=== PATIENT | male | born 1945 | race Caucasian/White ===

== ENCOUNTER 2016-06-25 08:51 | Inpatient (IN) | payer OTHER, MEDICARE ==
[~2016-06-25] VITALS: Ht 170.2 cm; Wt 95.4 kg
[2016-06-25 11:35] VITALS: BP 172/98; PULSE 63; RESP 18; TEMP 98.6; O2SAT 98
[2016-06-25 12:00] VITALS: PULSE 60
[2016-06-25] MEDS ORDERED: ePHEDrine/NS 25 MG/5 ML SYR IV ONE (12:00)
[2016-06-25] MEDS ORDERED: diphenhydrAMINE HCL 50 MG/ML VIAL IV PUSH SCH (12:00)
[2016-06-25] MEDS ORDERED: CISATRACURIUM BESYLATE 10 MG/5 ML VIAL IV PUSH ONE (12:00)
[2016-06-25] MEDS ORDERED: NEOSTIGMINE 3 MG/3 ML SYR IV ONE (12:00)
[2016-06-25] MEDS ORDERED: ACETAMINOPHEN 1000 MG/100 ML VIAL IV SCH (12:00)
[2016-06-25] MEDS ORDERED: ONDANSETRON HCL 4 MG/2 ML VIAL IV PUSH ONE (12:00)
[2016-06-25] MEDS ORDERED: PROPOFOL 200 MG/20 ML AMP IV ONE (12:00)
[2016-06-25] MEDS ORDERED: PHENYLEPH/NS 1000 MCG/10 ML SYR IV ONE (12:00)
[2016-06-25] MEDS ORDERED: SODIUM CHLOR 0.9% 1000 ML INJ 2,000 ML IV ONE (12:00)
[2016-06-25] MEDS ORDERED: SODIUM CHLORID 0.9% 500 ML INJ 500 ML IV ONE (12:00)
--- NOTE | 2016-06-25 12:05 | HHI.HP ---
History of Present Illness Service Transplant Primary Care Physician Non-Staff Admission Diagnosis ESRD, for Kidney transplant Diagnoses: History of Present Illness 71 yo male with ESRD from chronic diabetes; on peritoneal dialysis, still voids about 1 qt UO/day; No recent F/C/N/V/D, no exposure to anyone ill, no travel outside [place]; no open wounds or cough. Review of Systems Constitutional: DENIES: Diaphoretic episodes, Fatigue, Fever, Weight gain, Weight loss, Chills, Dizziness, Change in appetite, Night Sweats Endocrine: DENIES: Heat/cold intolerance, Polydipsia, Polyuria, Polyphagia Eyes: DENIES: Blurred vision, Diplopia, Eye inflammation, Eye pain, Vision loss , Photosensitivity, Double Vision Ears, nose, mouth, throat: DENIES: Tinnitus, Hearing loss, Vertigo, Nasal discharge, Oral lesions, Throat pain, Hoarseness, Ear Pain, Running Nose, Epistaxis, Sinus Pain, Toothache, Odynophagia Respiratory: DENIES: Apneas, Cough, Snoring, Wheezing, Hemoptysis, Sputum production, Shortness of breath Cardiovascular: DENIES: Chest pain, Palpitations, Syncope, Dyspnea on Exertion , PND, Lower Extremity Edema, Orthopnea, Claudication Gastrointestinal: DENIES: Abdominal pain, Black stools, Bloody stools, Constipation, Diarrhea, Nausea, Vomiting, Difficulty Swallowing, Anorexia Genitourinary: DENIES: Sexual dysfunction, Urinary frequency, Urinary incontinence, Urgency, Hematuria, Dysuria, Nocturia, Penile Discharge, Testicular Pain, Testicular Swelling Musculoskeletal: DENIES: Joint pain, Muscle aches, Stiffness, Joint Swelling, Back pain, Neck pain Integumentary: DENIES: Abnormal pigmentation, Nail changes, Pruritus, Rash Hematologic/lymphatic: DENIES: Bruising, Lymphadenopathy Immunologic/allergic: DENIES: Eczema, Urticaria Neurologic: DENIES: Abnormal gait, Headache, Localized weakness, Paresthesias, Seizures, Speech Problems, Tremor, Poor Balance Psychiatric: DENIES: Anxiety, Confusion, Mood changes, Depression, Hallucinations, Agitation, Suicidal Ideation, Homicidal Ideation, Delusions Past Family Social History Allergies: Coded Allergies: No Known Allergies (Unverified , 06/25/16) Past Medical History HTN hypothyroid BPH ESRD Past Surgical History L eye laser surgery PD cath placement 2015 Reported Medications ASA Flomax Levothyroxine Insulin Family History + for Diabetes Social History Non smoker Social drinker Physical Exam Physical Exam GENERAL: This is a well-nourished, well-developed patient, in no apparent distress. SKIN: No rashes, ecchymoses or lesions. Cool and dry. HEAD: Atraumatic. Normocephalic. No temporal or scalp tenderness. EYES: Pupils equal round and reactive. Extraocular motions intact. No scleral icterus. No injection or drainage. ENT: Nose without bleeding, purulent drainage or septal hematoma. Throat without erythema, tonsillar hypertrophy or exudate. Uvula midline. Airway patent. NECK: Trachea midline. No JVD or lymphadenopathy. Supple, nontender, no meningeal signs. CARDIOVASCULAR: Regular rate and rhythm without murmurs, gallops, or rubs. RESPIRATORY: Clear to auscultation. Breath sounds equal bilaterally. No wheezes , rales, or rhonchi. GASTROINTESTINAL: Abdomen soft, non-tender, nondistended. No hepato-splenomegaly , or palpable masses. No guarding.PD cath site without infection MUSCULOSKELETAL: Extremities without clubbing, cyanosis, or edema. No joint tenderness, effusion noted. No calf tenderness. NEUROLOGICAL: Awake and alert. Motor and sensory grossly within normal limits. 4 out of 5 muscle strength in all muscle groups. Normal speech. Laboratory Labs drawn, results pending Assessment and Plan Assessment and Plan Discussed KDPI (explained what it meant) of the allograft to patient, and he is willing to accept. He appears in good status for a donor kidney transplant. Crossmatch is negative for Mr. Pavon. Mateo Medina MD Jun 25, 2016 12:05
[2016-06-25] MEDS ORDERED: SODIUM CHLOR 0.9% 1000 ML INJ 1,000 ML IV ONE (12:06)
[2016-06-25 12:07] LABS: AUTOMATED NEUTROPHIL # 6.9 TH/MM3 (1.8-7.7); BASOPHIL % 0.3 % (0.0-2.0); EOSINOPHIL # 0.2 TH/MM3 (0-0.4); EOSINOPHIL % 1.5 % (0.0-4.0); HEMATOCRIT 38.7 % (39.0-51.0); HEMO FLAGS DIFF FINAL; LYMPHOCYTE # 2.4 TH/MM3 (1.0-4.8); MEAN CELL VOLUME 89.9 FL (80.0-100.0); MEAN CORPUSCULAR HEMOGLOBIN 31.1 PG (27.0-34.0); MEAN CORPUSCULAR HGB CONC 34.7 % (32.0-36.0); NEUT % 67.2 % (16.0-70.0); PLATELET COUNT 314 TH/MM3 (150-450); RED BLOOD COUNT 4.31 MIL/MM3 (4.50-5.90); RED CELL DISTRIBUTION WIDTH 13.2 % (11.6-17.2); WHITE BLOOD COUNT 10.2 TH/MM3 (4.0-11.0)
[2016-06-25 12:17] LABS: APTT (PATIENT) 26.3 SEC (24.3-30.1); INTERNATIONAL NORMALIZED RATIO 1.1 RATIO; PROTHROMBIN TIME - PATIENT 12.5 SEC (9.8-11.6)
--- NOTE | 2016-06-25 12:28 | MB ---
cc: SAMMI LANCASTER MD DATE OF CONSULTATION 06/25/2016 REASON FOR CONSULTATION End-stage renal disease on hemodialysis presented for cadaveric renal transplant. HISTORY OF PRESENT ILLNESS This is a very pleasant 70-year-old male with a past medical history of diabetes mellitus for more than 20 years, history of hypertension, has end-stage renal disease because of diabetic nephropathy and has been on the peritoneal dialysis for the last one year, was called for admission for cadaveric renal transplant. The patient has been on peritoneal dialysis for the last one year, but he has been using only one bag with the cycler at night, so he possibly has still gradual renal function. He has been following with Dr. Mendez and has been evaluated in the renal transplant clinic by Dr. Vee since July of last year. The patient did his regular peritoneal dialysis last night and he has no specific complaint. Denies any headache, dizziness or blurring of vision. No history of fever. No sore throat. No shortness of breath or chest pain. No palpitation. No nausea or vomiting. He is still passing urine. There is no history of dysuria or hematuria. PAST MEDICAL HISTORY 1. Hypertension 2. Diabetes mellitus 3. End-stage renal disease on peritoneal dialysis 4. Hyperlipidemia 5. Hypothyroidism 6. History of benign prostatic hypertrophy PAST SURGICAL HISTORY 1. History of eye surgery. 2. Tenckhoff catheter placement REVIEW OF SYSTEMS There is no history of fever. No sore throat. No headache, dizziness, or blurring of vision. No shortness breath. No chest pain. No palpitation. No nausea, vomiting, or abdominal pain. No history of diarrhea. SOCIAL HISTORY The patient is . There is no history of smoking or alcoholism. FAMILY HISTORY Noncontributory ALLERGIES NO KNOWN DRUG ALLERGIES. IMAGING STUDIES There were no recent imaging studies done. The last one was in July of 2015 where hemoglobin was 11.6. He has labs being drawn right now. ASSESSMENT/PLAN 1. Admitted for cadaveric renal transplant 2. End-stage renal disease on peritoneal dialysis 3. Diabetes mellitus 4. Hypertension 5. Hypothyroidism 6. Mild anemia The patient has been admitted for cadaveric renal transplant. He will have the surgery in the next two hours. He does not have any history of heart disease and has no recent fever or shortness of breath. He is not on any fluid overload status. We will follow his labs and he will be going for transplant. The patient will be getting thymo as well as regular anti-rejection therapy and will manage his fluid and blood pressure postoperatively. Thank you for the consultation. I will be following the patient while he is in the hospital. MD ALLYN Jarvis/ALIE /12:01 PM /12:14 PM
[2016-06-25 12:33] LABS: ALKALINE PHOSPHATASE 70 U/L (45-117); ALT (GPT) 33 U/L (12-78); ANION GAP 11 MEQ/L (5-15); AST (GOT) 39 U/L (15-37); BICARBONATE 24.8 MEQ/L (21.0-32.0); BLOOD UREA NITROGEN 51 MG/DL (7-18); CHLORIDE 103 MEQ/L (98-107); GLOMERULAR FILTRATION RATE 10 ML/MIN (>89); POTASSIUM 4.2 MEQ/L (3.5-5.1); SODIUM (NA) 139 MEQ/L (136-145); TOTAL BILIRUBIN ADULT 0.4 MG/DL (0.2-1.0)
[2016-06-25] MEDS ORDERED: METHYLPREDNISOLONE IV SCH (12:45)
[2016-06-25] MEDS ORDERED: ceFAZolin 2 GM PREMIX 50 ML IV SCH (12:45)
[2016-06-25 13:00] VITALS: PULSE 56
[2016-06-25] MEDS ORDERED: MYCOPHENOLATE MOFETIL 500 MG TAB PO SCH (13:00)
--- NOTE | 2016-06-25 13:10 | RADRPT ---
EXAM DATE/TIME: 06/25/2016 12:28 [facility] COMPARISON: No previous studies available for comparison. INDICATIONS : Evaluate for pneumonia, pneumothorax, and communicable disease. Pre op for kidney transplant. MEDICAL HISTORY : Hypertension. Hypercholesterolemia. Stage 4 renal failure. Diabetes. SURGICAL HISTORY : Peritoneal dialysis catheter. ENCOUNTER: Initial ACUITY: 1 day PAIN SCORE: 0/10 LOCATION: Bilateral chest FINDINGS: PA and lateral views of the chest demonstrate the lungs to be symmetrically aerated without evidence of mass, infiltrate or effusion. The cardiomediastinal contours are unremarkable. Osseous structure s are intact. CONCLUSION: 1. No acute cardiopulmonary findings. John Koroma MD on June 25, 2016 at 13:07 Board Certified Radiologist. This report was verified electronically.
[2016-06-25] MEDS ORDERED: ASPI1TAB69 PO (13:15)
[2016-06-25] MEDS ORDERED: BENA40TA PO (13:15)
[2016-06-25] MEDS ORDERED: ATEN100T PO (13:15)
[2016-06-25] MEDS ORDERED: CALC0.5C6 PO (13:15)
[2016-06-25] MEDS ORDERED: EPA1000C PO (13:15)
[2016-06-25] MEDS ORDERED: FOLI800T PO (13:15)
[2016-06-25] MEDS ORDERED: FURO1TAB60 PO (13:15)
[2016-06-25] MEDS ORDERED: BENA20TA PO (13:15)
[2016-06-25] MEDS ORDERED: LEVO-154 PO (13:15)
[2016-06-25] MEDS ORDERED: HEPARIN SODIUM - SQ 10,000 UNITS/ML VIAL ONE (13:24)
[2016-06-25] MEDS ORDERED: BUPIVACAINE HCL PF 0.5% 30 ML VIAL ONE (13:24)
[2016-06-25] MEDS ORDERED: SODIUM BICARBONATE 8.4% INJ 50 MEQ/50 ML SYR ONE (13:25)
[2016-06-25] MEDS ORDERED: MINERAL OIL 10 ML VIAL ONE (13:25)
[2016-06-25] MEDS ORDERED: LIDOCAINE HCL 2% 50 ML VIAL ONE (13:25)
[2016-06-25] MEDS ORDERED: PAPAVERINE INJ 60 MG/2 ML VIAL ONE ×2 (13:25→13:30)
[2016-06-25] MEDS ORDERED: methylPREDNISolone SOD SUCC 125 MG/2 ML VIAL ONE ×2 (13:25→13:31)
[2016-06-25] MEDS ORDERED: SODIUM BICARBONATE 8.4% INJ 50 ML ONE (13:31)
[2016-06-25 14:00] VITALS: PULSE 57
[2016-06-25] MEDS ORDERED: CHOL1CAP61 PO (14:37)
[2016-06-25] MEDS ORDERED: LOVA40TA PO (14:37)
[2016-06-25] MEDS ORDERED: SEVEL800 PO (14:37)
[2016-06-25] MEDS ORDERED: INSUINJ4 (14:37)
[2016-06-25] MEDS ORDERED: FERR150C (14:37)
[2016-06-25] MEDS ORDERED: INSUINJ4 SQ ×2 (14:37)
[2016-06-25] MEDS ORDERED: NIFE90TA2 PO (14:37)
[2016-06-25] MEDS ORDERED: TAMS0.4C4 PO (14:37)
[2016-06-25] MEDS ORDERED: CLON0.2T PO (14:40)
[2016-06-25] MEDS ORDERED: NIFE30TA61 PO (14:42)
[2016-06-25] MEDS ORDERED: fentaNYL CITRATE 250 MCG/5 ML AMP ONE ×2 (16:03→18:01)
[2016-06-25] MEDS ORDERED: MIDAZOLAM HCL 2 MG/2 ML VIAL ONE (16:03)
[2016-06-25] MEDS ORDERED: ACETAMINOPHEN 1000 MG/100 ML VIAL IV ONE (16:03)
[2016-06-25] MEDS ORDERED: ARTIFICIAL TEARS OPTH OINT 3.5 APPLIC/3.5 GM TUBO ONE (16:03)
[2016-06-25] MEDS ORDERED: BACITRACIN IM FOR SOLN 50,000 UNIT VIAL XX ONE (17:27)
[2016-06-25] MEDS ORDERED: ANTITHYMOCYTE GLOB IV-CENTRAL ONE (18:00)
[2016-06-25] MEDS ORDERED: SODIUM CHLORID 0.9% IV-CENTRAL ONE (18:00)
[2016-06-25] MEDS ORDERED: ONDANSETRON HCL 4 MG/2 ML VIAL IV PRN (22:45)
[2016-06-25] MEDS ORDERED: DEXTROSE 50% IN WATER 50 ML VIAL(D50) IV PUSH PRN (22:45)
[2016-06-25] MEDS ORDERED: RESP: ALBUTEROL 2.5 MG/IPRATROPIUM 0.5 MG NEB (PRN) INH (22:45)
[2016-06-25] MEDS ORDERED: diphenhydrAMINE HCL 50 MG/ML VIAL IV PRN (22:45)
[2016-06-25] MEDS ORDERED: diphenhydrAMINE HCL 25 MG CAP PO PRN (22:45)
[2016-06-25] MEDS ORDERED: ONDANSETRON INJ 8 MG in DEXTROSE 5% IN WATER INJ 50 ML IV PRN ×2 (22:45)
[2016-06-25] MEDS ORDERED: MORPHINE SULFATE 30 MG/30 ML PCA IV SCH (22:45)
[2016-06-25] MEDS ORDERED: NALOXONE HCL 0.4 MG/ML AMP IV PRN (22:45)
[2016-06-25] MEDS ORDERED: GLUCAGON 1 MG/ML VIAL OTHER PRN (22:45)
[2016-06-25] MEDS ORDERED: LABETALOL HCL 100 MG/20 ML VIAL ONE (22:57)
[2016-06-25 23:14] LABS: AUTOMATED NEUTROPHIL # 10.5 TH/MM3 (1.8-7.7); HEMATOCRIT 35.2 % (39.0-51.0); HEMO FLAGS DIFF FINAL; LYMPH % 0.9 % (9.0-44.0); LYMPHOCYTE # 0.1 TH/MM3 (1.0-4.8); MEAN CELL VOLUME 91.2 FL (80.0-100.0); MEAN CORPUSCULAR HEMOGLOBIN 31.5 PG (27.0-34.0); MEAN CORPUSCULAR HGB CONC 34.5 % (32.0-36.0); MONO % 0.4 % (0.0-8.0); NEUT % 98.7 % (16.0-70.0); PLATELET COUNT 186 TH/MM3 (150-450); RED BLOOD COUNT 3.86 MIL/MM3 (4.50-5.90); RED CELL DISTRIBUTION WIDTH 13.2 % (11.6-17.2); WHITE BLOOD COUNT 10.6 TH/MM3 (4.0-11.0)
[2016-06-25] MEDS ORDERED: DO NOT ADM ANY ANTICOAGULANT DRUGS XX PRN (23:30)
--- NOTE | 2016-06-25 23:39 | RADRPT ---
EXAM DATE/TIME: 06/25/2016 23:13 [facility] COMPARISON: No previous studies available for comparison. INDICATIONS : Right internal jugular central line placement. MEDICAL HISTORY : Hypertension. Hypercholesterolemia. Renal failure, chronic. SURGICAL HISTORY : Kidney transplant. ENCOUNTER: Subsequent ACUITY: 1 day PAIN SCORE: 0/10 LOCATION: Right chest FINDINGS: Right jugular line is noted in the tip overlies expected location the SVC. There is atelectasis at th e left base. No effusions. Osseous structures are intact. Cardiomegaly. CONCLUSION: Right jugular line placement as above. Rosalio Macias MD on June 25, 2016 at 23:37 Board Certified Radiologist. This report was verified electronically.
[2016-06-25] MEDS: DEXT 5%-NACL 0.45% 1000 ML INJ 1,000 ML IV SCH (23:45)
[2016-06-25 23:47] LABS: BICARBONATE 21.1 MEQ/L (21.0-32.0); MAGNESIUM 1.8 MG/DL (1.5-2.5)
[2016-06-26] VITALS (17 sets, daily range): BP systolic 121–177; BP diastolic 62–87; PULSE 70–93; RESP 16–20; TEMP 98.4–100.3; O2SAT 93–98
[2016-06-26] MEDS: SODIUM CHLOR 0.45% 1000 ML INJ 1,000 ML IV SCH (00:16)
[2016-06-26] MEDS ORDERED: MYCOPHENOLATE MOFETIL 500 MG TAB PO SCH (06:00)
[2016-06-26] MEDS: PCA - TOTAL MG MORPHINE DELIVERED PER SHIFT SCH ×3 (06:00→22:00)
[2016-06-26] MEDS ORDERED: MYCOPHENOLATE MOFETIL INJ 1,000 MG in DEXTROSE 5% IN WATE 150 ML INJ 150 ML IV SCH ×2 (06:00)
[2016-06-26 06:02] LABS: AUTOMATED NEUTROPHIL # 18.6 TH/MM3 (1.8-7.7); BASOPHIL # 0.1 TH/MM3 (0-0.2); BASOPHIL % 0.3 % (0.0-2.0); HEMATOCRIT 33.1 % (39.0-51.0); HEMO FLAGS DIFF FINAL; LYMPH % 0.5 % (9.0-44.0); LYMPHOCYTE # 0.1 TH/MM3 (1.0-4.8); NEUT % 95.2 % (16.0-70.0); PLATELET COUNT 226 TH/MM3 (150-450); RED BLOOD COUNT 3.64 MIL/MM3 (4.50-5.90); RED CELL DISTRIBUTION WIDTH 13.3 % (11.6-17.2); WHITE BLOOD COUNT 19.6 TH/MM3 (4.0-11.0)
[2016-06-26 06:08] LABS: BICARBONATE 19.7 MEQ/L (21.0-32.0); MAGNESIUM 1.7 MG/DL (1.5-2.5); POTASSIUM 4.3 MEQ/L (3.5-5.1)
[2016-06-26] MEDS: INSULIN NovoLIN REGULAR SUPPLEMENTAL SCALE SQ SCH ×4 (06:30→21:52)
[2016-06-26] MEDS: MYCOPHENOLATE MOFETIL 500 MG TAB PO SCH ×2 (06:45→18:21)
[2016-06-26] MEDS: CALCIUM CARBONATE 500 MG CHEWABLE TAB CHEW SCH ×2 (08:40→15:52)
[2016-06-26] MEDS: NYSTATIN SUSP 500,000 U/5 ML CUP SWISH-SWAL SCH ×3 (08:41→20:26)
[2016-06-26] MEDS: PANTOPRAZOLE SODIUM 40 MG VIAL IV PUSH SCH (08:41)
--- NOTE | 2016-06-26 18:52 | HHI.NPPN ---
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 Additional Remarks Patient is alert, feeling better, no SOB. Objective Data Data 06/25/16 06/26/16 19:00 07:00 Intake Total 4947 ml Output Total 830 ml Balance 4117 ml Intake Oral 200 ml IV Total 1747 ml Other 3000 ml Output Urine Total 550 ml Drainage Total 80 ml Estimated Blood Loss 200 ml Other 0 ml # Bowel Movements 0 Vital Signs Date Time Temp Pulse Resp B/P Pulse Ox O2 Delivery O2 Flow Rate FiO2 06/26/16 15:46 94 Nasal Cannula 2.00 06/26/16 15:46 99.8 85 18 121/67 94 126/63 06/26/16 15:00 90 06/26/16 14:00 16 06/26/16 14:00 16 06/26/16 11:30 99.8 85 18 121/67 94 126/63 06/26/16 11:30 94 Nasal Cannula 2.00 06/26/16 11:00 70 06/26/16 08:29 97 Nasal Cannula 2.00 06/26/16 08:28 128/64 121/66 06/26/16 08:08 99.4 89 20 122/62 95 124/63 06/26/16 08:08 95 Nasal Cannula 2.00 06/26/16 07:00 90 06/26/16 06:00 18 06/26/16 06:00 16 06/26/16 04:00 95 Nasal Cannula 2.00 06/26/16 04:00 98.4 87 16 130/69 95 141/66 06/26/16 04:00 88 06/26/16 02:33 95 Nasal Cannula 2.00 06/26/16 00:30 98.4 93 16 160/78 95 177/76 06/26/16 00:30 92 06/26/16 00:30 95 Nasal Cannula 2.00 06/26/16 00:18 20 06/26/16 00:15 97.6 91 16 167/83 96 Nasal Cannula 2 180/59 06/26/16 00:00 88 16 151/83 100 Nasal Cannula 2 182/61 06/25/16 23:45 81 15 162/81 100 Nasal Cannula 3 174/59 06/25/16 23:30 83 15 159/79 100 Nasal Cannula 3 190/65 06/25/16 23:15 114 15 173/78 94 Nasal Cannula 3 194/72 06/25/16 23:00 86 14 135/76 100 Simple Mask 10 175/70 06/25/16 22:45 97.5 101 14 158/81 95 Simple Mask 10 187/73 -: 06/26/16 0510 06/26/16 0510 Physical Exam General Appearance: No Acute Distress, Comfortable Eyes Eye Exam: Pupils Equal Neck Neck Exam: Neck Supple Pulmonary Resp Exam: Clear Bilaterally, Breath Sounds Equal, Decreased Bases Cardiology CV Exam: Regular, Normal Sinus Rhythm Gastrointestinal/Abdomen GI Exam: Soft, Non-Tender, Bowel Sounds Present, Non-Distended Extremeties Extremities Exam: Trace Edema Neurologic Neuro Exam: Alert, Awake, Oriented Psychiatric Psych Exam: Appropriate Responses Assessment/Plan Assessment Summary: Hypertension, Transplant Kidney Status Problem List: (1) Diabetes (2) Hypertension (3) ESRD (end stage renal disease) on dialysis (4) Renal transplant, status post Plan Patient has adequate urine out put. BP is stable. Creatinine almost same. On ATG, along with CellCept. Will give 2nd dose today. Follow urine out put , BMP. To start Prograf once Creatinine is better. Problem Qualifiers (1) Diabetes: (2) Hypertension: Qualified Code: I10 - Essential hypertension Rico Kebede MD Jun 26, 2016 18:52
[2016-06-26] MEDS ORDERED: diphenhydrAMINE HCL 50 MG CAP PO ONE (19:00)
[2016-06-26] MEDS ORDERED: [UNRECOGNIZED DRUG - OTHER] XX PRN (19:00)
[2016-06-26] MEDS ORDERED: ACETAMINOPHEN 325 MG TAB PO ONE (19:00)
[2016-06-26] MEDS ORDERED: diphenhydrAMINE HCL 50 MG/ML VIAL IV PUSH ONE (19:00)
[2016-06-26] MEDS ORDERED: methylPREDNISolone SOD SUCC 125 MG/2 ML VIAL IV ONE (19:00)
[2016-06-26] MEDS ORDERED: ANTITHYMOCYTE GLOB IV-CENTRAL ONE (20:00)
[2016-06-26] MEDS ORDERED: SODIUM CHLORID 0.9% IV-CENTRAL ONE (20:00)
[2016-06-26] MEDS: DOCUSATE SODIUM 100 MG CAP PO SCH (20:26)
[2016-06-26] MEDS: DEXT 5%-NACL 0.45% 1000 ML INJ 1,000 ML IV SCH (22:38)
[2016-06-27] VITALS (13 sets, daily range): BP systolic 137–189; BP diastolic 68–97; PULSE 62–93; RESP 18–20; TEMP 98.7–99.3; O2SAT 92–95
[2016-06-27 05:36] LABS: AUTOMATED NEUTROPHIL # 7.1 TH/MM3 (1.8-7.7); HEMATOCRIT 32.8 % (39.0-51.0); HEMO FLAGS DIFF FINAL; LYMPH % 1.5 % (9.0-44.0); LYMPHOCYTE # 0.1 TH/MM3 (1.0-4.8); MEAN CELL VOLUME 91.3 FL (80.0-100.0); MEAN CORPUSCULAR HEMOGLOBIN 30.2 PG (27.0-34.0); MEAN CORPUSCULAR HGB CONC 33.1 % (32.0-36.0); NEUT % 96.5 % (16.0-70.0); PLATELET COUNT 154 TH/MM3 (150-450); RED BLOOD COUNT 3.59 MIL/MM3 (4.50-5.90); WHITE BLOOD COUNT 7.3 TH/MM3 (4.0-11.0)
[2016-06-27] MEDS: PCA - TOTAL MG MORPHINE DELIVERED PER SHIFT SCH ×3 (06:00→22:00)
[2016-06-27] MEDS: MYCOPHENOLATE MOFETIL 500 MG TAB PO SCH ×2 (06:00→18:02)
[2016-06-27 06:13] LABS: MAGNESIUM 1.9 MG/DL (1.5-2.5); POTASSIUM 4.5 MEQ/L (3.5-5.1)
[2016-06-27] MEDS: INSULIN NovoLIN REGULAR SUPPLEMENTAL SCALE SQ SCH ×4 (06:51→21:37)
--- NOTE | 2016-06-27 07:22 | EKG ---
Date Performed: 06/25/2016 Time Performed: 12:02:00 PTAGE: 71 years EKG: Sinus rhythm Leftward axis Poor R wave progression - probable normal variant Borderline ECG NO PREVIOUS TRACING DOCTOR: Agustin Jacobs Interpretating Date/Time 06/27/2016 07:22:09
[2016-06-27] MEDS ORDERED: LEVOTHYROXINE SODIUM 150 MCG TAB PO SCH (08:45)
--- NOTE | 2016-06-27 08:59 | HHI.PR ---
Subjective Remarks Awake and alert this AM, slept off and on, wants to get out of bed, tolerating clears and pills, no flatus Objective Laboratory Tests Test 06/27/16 05:12 White Blood Count 7.3 Red Blood Count 3.59 Hemoglobin 10.9 Hematocrit 32.8 Mean Corpuscular Volume 91.3 Mean Corpuscular Hemoglobin 30.2 Mean Corpuscular Hemoglobin 33.1 Concent Red Cell Distribution Width 13.0 Platelet Count 154 Mean Platelet Volume 9.0 Neutrophils (%) (Auto) 96.5 Lymphocytes (%) (Auto) 1.5 Monocytes (%) (Auto) 2.0 Eosinophils (%) (Auto) 0.0 Basophils (%) (Auto) 0.0 Neutrophils # (Auto) 7.1 Lymphocytes # (Auto) 0.1 Monocytes # (Auto) 0.1 Eosinophils # (Auto) 0.0 Basophils # (Auto) 0.0 CBC Comment DIFF FINAL Differential Comment Sodium Level 135 Potassium Level 4.5 Chloride Level 103 Carbon Dioxide Level 18.0 Anion Gap 14 Blood Urea Nitrogen 65 Creatinine 5.59 Estimat Glomerular Filtration 10 Rate Random Glucose 339 Calcium Level 7.9 Phosphorus Level 4.6 Magnesium Level 1.9 Vital Signs Date Time Temp Pulse Resp B/P Pulse Ox O2 Delivery O2 Flow Rate FiO2 06/27/16 08:00 95 Nasal Cannula 2.00 06/27/16 08:00 99.0 83 20 149/84 95 159/68 06/27/16 07:00 64 06/27/16 06:00 18 06/27/16 06:00 18 06/27/16 03:00 95 Nasal Cannula 2.00 06/27/16 03:00 83 06/27/16 03:00 99.2 83 20 165/85 95 160/70 06/26/16 23:00 93 Nasal Cannula 2.00 06/26/16 23:00 86 06/26/16 23:00 100.3 87 18 165/87 93 158/69 06/26/16 22:00 18 06/26/16 22:00 18 06/26/16 20:52 97 Nasal Cannula 2.00 06/26/16 19:00 99.9 78 18 150/79 98 167/72 06/26/16 19:00 98 Nasal Cannula 2.00 06/26/16 19:00 86 06/26/16 15:46 94 Nasal Cannula 2.00 06/26/16 15:46 99.8 85 18 121/67 94 126/63 06/26/16 15:00 90 06/26/16 14:00 16 06/26/16 14:00 16 06/26/16 11:30 99.8 85 18 121/67 94 126/63 06/26/16 11:30 94 Nasal Cannula 2.00 06/26/16 11:00 70 I/O 06/26/16 06/26/16 06/26/16 06/27/16 06/27/16 06/27/16 07:00 15:00 23:00 07:00 15:00 23:00 Intake Total 1447 ml 2158 ml 3135 ml Output Total 630 ml 428 ml 1965 ml Balance 817 ml 1730 ml 1170 ml Intake Oral 200 ml 1180 ml 840 ml IV Total 1247 ml 978 ml 2295 ml Output Urine Total 550 ml 398 ml 1905 ml Drainage Total 80 ml 30 ml 60 ml # Bowel Movements 0 0 Result Diagram: 06/27/1612 06/27/16 0512 Other Results Dressing clean , dry, intact, non-soiled Abdomen soft, non-idstended Ext + edema Urine red tinged Drain: serosang Assessment and Plan Assessment and Plan Doing well with excellent urine production, clearance lagging; will d/c Cinthya and wean off oxygen; Restart Flomax and levothyroxine; OOB to chair Mateo Medina MD Jun 27, 2016 08:59
[2016-06-27] MEDS: PANTOPRAZOLE SODIUM 40 MG VIAL IV PUSH SCH (09:43)
[2016-06-27] MEDS: SULFAMETHOXAZOLE-TRIMETHOPRIM DS 800-160 MG TAB PO SCH (09:44)
[2016-06-27] MEDS: TAMSULOSIN HCL 0.4 MG CAP PO SCH (09:44)
[2016-06-27] MEDS: CALCIUM CARBONATE 500 MG CHEWABLE TAB CHEW SCH ×2 (09:44→16:33)
[2016-06-27] MEDS: DOCUSATE SODIUM 100 MG CAP PO SCH ×2 (09:44→20:13)
[2016-06-27] MEDS: NYSTATIN SUSP 500,000 U/5 ML CUP SWISH-SWAL SCH ×3 (09:44→20:27)
--- NOTE | 2016-06-27 12:21 | HHI.NPPN ---
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 Additional Remarks Patient is alert, no SOB, has mild discomfort at surgery site. Objective Data Data 06/26/16 06/27/16 19:00 07:00 Intake Total 2158 ml 3135 ml Output Total 428 ml 1965 ml Balance 1730 ml 1170 ml Intake Oral 1180 ml 840 ml IV Total 978 ml 2295 ml Output Urine Total 398 ml 1905 ml Drainage Total 30 ml 60 ml # Bowel Movements 0 Vital Signs Date Time Temp Pulse Resp B/P Pulse Ox O2 Delivery O2 Flow Rate FiO2 06/27/16 12:00 95 06/27/16 12:00 80 06/27/16 12:00 98.9 63 20 163/97 95 Arterial Line 06/27/16 08:00 95 Nasal Cannula 2.00 06/27/16 08:00 99.0 83 20 149/84 95 159/68 06/27/16 07:00 64 06/27/16 06:00 18 06/27/16 06:00 18 06/27/16 03:00 95 Nasal Cannula 2.00 06/27/16 03:00 83 06/27/16 03:00 99.2 83 20 165/85 95 160/70 06/26/16 23:00 93 Nasal Cannula 2.00 06/26/16 23:00 86 06/26/16 23:00 100.3 87 18 165/87 93 158/69 06/26/16 22:00 18 06/26/16 22:00 18 06/26/16 20:52 97 Nasal Cannula 2.00 06/26/16 19:00 99.9 78 18 150/79 98 167/72 06/26/16 19:00 98 Nasal Cannula 2.00 06/26/16 19:00 86 06/26/16 15:46 94 Nasal Cannula 2.00 06/26/16 15:46 99.8 85 18 121/67 94 126/63 06/26/16 15:00 90 06/26/16 14:00 16 06/26/16 14:00 16 -: 06/27/16 0512 06/27/16 0512 Physical Exam General Appearance: No Acute Distress, Comfortable Eyes Eye Exam: Pupils Equal Neck Neck Exam: Neck Supple Pulmonary Resp Exam: Clear Bilaterally, Breath Sounds Equal, Decreased Bases Cardiology CV Exam: Regular, Normal Sinus Rhythm Gastrointestinal/Abdomen GI Exam: Soft, Non-Tender, Bowel Sounds Present, Non-Distended Extremeties Extremities Exam: Trace Edema Neurologic Neuro Exam: Alert, Awake, Oriented Psychiatric Psych Exam: Appropriate Responses Assessment/Plan Assessment Summary: Hypertension, Transplant Kidney Status Problem List: (1) Diabetes (2) Hypertension (3) ESRD (end stage renal disease) on dialysis (4) Renal transplant, status post Plan Patient has adequate urine out put. Creatinine is almost same. On ATG, along with CellCept and steroid. Will give 3rd dose today. Hold starting Prograf as Creatinine still not improving. Follow urine out put , BMP. To start Prograf once Creatinine is better. BS elevated, change sliding scale to medium. BP is elevated, start Nifedipine and clonidine PRN. Problem Qualifiers (1) Diabetes: (2) Hypertension: Qualified Code: I10 - Essential hypertension Rico Kebede MD Jun 27, 2016 12:21
[2016-06-27] MEDS: LEVOTHYROXINE SODIUM 75 MCG TAB PO SCH (13:22)
[2016-06-27] MEDS: LEVOTHYROXINE SODIUM 100 MCG TAB PO SCH (13:22)
[2016-06-27] MEDS: NIFEdipine 60 MG SUSTAINED RELEASE TAB PO SCH (13:22)
[2016-06-27] MEDS ORDERED: ACETAMINOPHEN 325 MG TAB PO ONE ×2 (14:00→19:30)
[2016-06-27] MEDS ORDERED: [UNRECOGNIZED DRUG - OTHER] XX PRN ×2 (14:00→19:00)
[2016-06-27] MEDS ORDERED: diphenhydrAMINE HCL 50 MG CAP PO ONE ×3 (14:00→19:30)
[2016-06-27] MEDS ORDERED: diphenhydrAMINE HCL 50 MG/ML VIAL IV PUSH ONE ×2 (14:00→19:30)
[2016-06-27] MEDS ORDERED: methylPREDNISolone SOD SUCC 125 MG/2 ML VIAL IV ONE ×2 (14:00→19:00)
[2016-06-27] MEDS: cloNIDine HCL 0.1 MG TAB PO PRN (15:07)
[2016-06-27] MEDS ORDERED: ANTITHYMOCYTE GLOB(RABBIT) INJ 100 MG in SODIUM CHLORID 0.9% 500 ML INJ 500 ML IV-CENTRAL ONE (20:00)
[2016-06-27] MEDS: SODIUM CHLOR 0.45% 1000 ML INJ 1,000 ML IV SCH (22:24)
[2016-06-28] VITALS (12 sets, daily range): BP systolic 101–163; BP diastolic 49–86; PULSE 60–84; RESP 16–20; TEMP 97.6–98.8; O2SAT 91–98
[2016-06-28] MEDS: SODIUM CHLOR 0.45% 1000 ML INJ 1,000 ML IV SCH ×4 (02:27→16:18)
[2016-06-28] MEDS: LEVOTHYROXINE SODIUM 100 MCG TAB PO SCH (05:52)
[2016-06-28] MEDS: LEVOTHYROXINE SODIUM 75 MCG TAB PO SCH (05:52)
[2016-06-28] MEDS: PCA - TOTAL MG MORPHINE DELIVERED PER SHIFT SCH (05:53)
[2016-06-28] MEDS: MYCOPHENOLATE MOFETIL 500 MG TAB PO SCH ×2 (05:53→17:42)
[2016-06-28] MEDS ORDERED: LEVOTHYROXINE SODIUM 100 MCG TAB PO SCH (06:00)
[2016-06-28] MEDS: INSULIN NovoLIN REGULAR SUPPLEMENTAL SCALE SQ SCH ×4 (06:05→20:55)
[2016-06-28] MEDS: cloNIDine HCL 0.1 MG TAB PO PRN (06:08)
[2016-06-28 06:25] LABS: AUTOMATED NEUTROPHIL # 2.9 TH/MM3 (1.8-7.7); HEMATOCRIT 28.4 % (39.0-51.0); HEMO FLAGS DIFF FINAL; LYMPH % 2.9 % (9.0-44.0); LYMPHOCYTE # 0.1 TH/MM3 (1.0-4.8); MEAN CELL VOLUME 90.6 FL (80.0-100.0); MEAN CORPUSCULAR HEMOGLOBIN 30.6 PG (27.0-34.0); MEAN CORPUSCULAR HGB CONC 33.7 % (32.0-36.0); MONO % 2.7 % (0.0-8.0); NEUT % 94.4 % (16.0-70.0); PLATELET COUNT 135 TH/MM3 (150-450); RED BLOOD COUNT 3.13 MIL/MM3 (4.50-5.90); RED CELL DISTRIBUTION WIDTH 13.3 % (11.6-17.2); WHITE BLOOD COUNT 3.1 TH/MM3 (4.0-11.0)
[2016-06-28 07:00] LABS: BICARBONATE 20.6 MEQ/L (21.0-32.0); MAGNESIUM 1.8 MG/DL (1.5-2.5); POTASSIUM 4.5 MEQ/L (3.5-5.1)
[2016-06-28] MEDS: NYSTATIN SUSP 500,000 U/5 ML CUP SWISH-SWAL SCH ×3 (09:18→20:55)
[2016-06-28] MEDS: DOCUSATE SODIUM 100 MG CAP PO SCH ×2 (09:18→20:55)
[2016-06-28] MEDS: CALCIUM CARBONATE 500 MG CHEWABLE TAB CHEW SCH ×2 (09:18→16:12)
[2016-06-28] MEDS: NIFEdipine 60 MG SUSTAINED RELEASE TAB PO SCH (09:18)
[2016-06-28] MEDS: PANTOPRAZOLE SODIUM 40 MG VIAL IV PUSH SCH (09:18)
[2016-06-28] MEDS: TAMSULOSIN HCL 0.4 MG CAP PO SCH (09:18)
--- NOTE | 2016-06-28 09:27 | HHI.PR ---
Subjective Remarks Sitting up in chair, awake and alert, eating breakfast; slept well overnight, passed flatus Objective Vital Signs Date Time Temp Pulse Resp B/P Pulse Ox O2 Delivery O2 Flow Rate FiO2 06/28/16 09:18 93 Nasal Cannula 2.00 06/28/16 07:25 97.6 66 19 142/82 91 06/28/16 07:23 66 06/28/16 07:22 91 Nasal Cannula 3.00 06/28/16 06:00 20 06/28/16 04:00 64 06/28/16 04:00 93 Nasal Cannula 2.00 06/28/16 04:00 98.6 65 20 143/70 93 06/28/16 00:00 93 Nasal Cannula 2.00 06/28/16 00:00 98.6 64 20 101/49 93 06/28/16 00:00 68 06/27/16 22:00 20 06/27/16 22:00 92 Nasal Cannula 2.00 06/27/16 22:00 20 06/27/16 21:51 92 Nasal Cannula 2.00 06/27/16 20:00 93 Room Air 06/27/16 20:00 99.3 86 20 137/75 93 06/27/16 19:30 93 06/27/16 17:42 95 Nasal Cannula 2.00 06/27/16 15:14 95 Room Air 06/27/16 15:12 98.7 63 20 189/93 95 06/27/16 15:00 62 06/27/16 14:00 18 06/27/16 14:00 18 06/27/16 12:00 95 Room Air 06/27/16 12:00 80 06/27/16 12:00 98.9 63 20 163/97 95 Arterial Line I/O 06/27/16 06/27/16 06/27/16 06/28/16 06/28/16 06/28/16 07:00 15:00 23:00 07:00 15:00 23:00 Intake Total 3135 ml 4045 ml 4014 ml Output Total 1965 ml 2410 ml 2760 ml Balance 1170 ml 1635 ml 1254 ml Intake Oral 840 ml 1200 ml 360 ml IV Total 2295 ml 2845 ml 3654 ml Output Urine Total 1905 ml 2365 ml 2720 ml Drainage Total 60 ml 45 ml 40 ml # Bowel Movements 0 0 0 Laboratory Tests Test 06/28/16 05:55 White Blood Count 3.1 Red Blood Count 3.13 Hemoglobin 9.6 Hematocrit 28.4 Mean Corpuscular Volume 90.6 Mean Corpuscular Hemoglobin 30.6 Mean Corpuscular Hemoglobin 33.7 Concent Red Cell Distribution Width 13.3 Platelet Count 135 Mean Platelet Volume 9.5 Neutrophils (%) (Auto) 94.4 Lymphocytes (%) (Auto) 2.9 Monocytes (%) (Auto) 2.7 Eosinophils (%) (Auto) 0.0 Basophils (%) (Auto) 0.0 Neutrophils # (Auto) 2.9 Lymphocytes # (Auto) 0.1 Monocytes # (Auto) 0.1 Eosinophils # (Auto) 0.0 Basophils # (Auto) 0.0 CBC Comment DIFF FINAL Differential Comment Sodium Level 137 Potassium Level 4.5 Chloride Level 107 Carbon Dioxide Level 20.6 Anion Gap 9 Blood Urea Nitrogen 56 Creatinine 4.16 Estimat Glomerular Filtration 14 Rate Random Glucose 222 Calcium Level 8.1 Phosphorus Level 4.4 Magnesium Level 1.8 Result Diagram: 06/28/1655 06/28/16 0555 Other Results Remains on nasal cannula -Abd soft, NT/ND Incsion C/D/I, alpa in place, no erythema Drain site dry Ext min edema Assessment and Plan Assessment and Plan Doing well with excellent urine production, Creatinine coming down; will switch to PO meds, can likely start Prograf today Mateo Medina MD Jun 28, 2016 09:27
[2016-06-28] MEDS ORDERED: TACROLIMUS 1 MG CAP PO ONE (10:00)
[2016-06-28] MEDS: oxyCODONE/ACETAMINOPHEN 5 MG/325 MG TAB PO PRN (14:03)
--- NOTE | 2016-06-28 14:11 | HHI.NPPN ---
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 Additional Remarks Patient is alert, no SOB, has mild discomfort at surgery site. Objective Data Data 06/27/16 06/28/16 19:00 07:00 Intake Total 4045 ml 4014 ml Output Total 2410 ml 2760 ml Balance 1635 ml 1254 ml Intake Oral 1200 ml 360 ml IV Total 2845 ml 3654 ml Output Urine Total 2365 ml 2720 ml Drainage Total 45 ml 40 ml # Bowel Movements 0 0 Vital Signs Date Time Temp Pulse Resp B/P Pulse Ox O2 Delivery O2 Flow Rate FiO2 06/28/16 11:09 61 06/28/16 11:09 97 Nasal Cannula 3.00 06/28/16 11:08 98.2 61 19 126/69 97 06/28/16 09:18 93 Nasal Cannula 2.00 06/28/16 07:25 97.6 66 19 142/82 91 06/28/16 07:23 66 06/28/16 07:22 91 Nasal Cannula 3.00 06/28/16 06:00 20 06/28/16 04:00 64 06/28/16 04:00 93 Nasal Cannula 2.00 06/28/16 04:00 98.6 65 20 143/70 93 06/28/16 00:00 93 Nasal Cannula 2.00 06/28/16 00:00 98.6 64 20 101/49 93 06/28/16 00:00 68 06/27/16 22:00 20 06/27/16 22:00 92 Nasal Cannula 2.00 06/27/16 22:00 20 06/27/16 21:51 92 Nasal Cannula 2.00 06/27/16 20:00 93 Room Air 06/27/16 20:00 99.3 86 20 137/75 93 06/27/16 19:30 93 06/27/16 17:42 95 Nasal Cannula 2.00 06/27/16 15:14 95 Room Air 06/27/16 15:12 98.7 63 20 189/93 95 06/27/16 15:00 62 -: 06/28/16 0555 06/28/16 0555 Physical Exam General Appearance: No Acute Distress, Comfortable Eyes Eye Exam: Pupils Equal Neck Neck Exam: Neck Supple Pulmonary Resp Exam: Clear Bilaterally, Breath Sounds Equal, Decreased Bases Cardiology CV Exam: Regular, Normal Sinus Rhythm Gastrointestinal/Abdomen GI Exam: Soft, Non-Tender, Bowel Sounds Present, Non-Distended Extremeties Extremities Exam: Trace Edema Neurologic Neuro Exam: Alert, Awake, Oriented Psychiatric Psych Exam: Appropriate Responses Assessment/Plan Assessment Summary: Hypertension, Transplant Kidney Status Problem List: (1) Diabetes (2) Hypertension (3) ESRD (end stage renal disease) on dialysis (4) Renal transplant, status post Plan Patient has adequate urine out put. Creatinine is improved. start Prograf with CellCept . continue to observe for recovery Follow urine out put , BMP. Problem Qualifiers (1) Diabetes: (2) Hypertension: Qualified Code: I10 - Essential hypertension Carlene Vee MD Jun 28, 2016 14:11
[2016-06-28] MEDS: TACROLIMUS 1 MG CAP PO SCH (17:43)
[2016-06-28] MEDS ORDERED: BISACODYL EC 5 MG TABEC PO PRN (22:45)
[2016-06-28] MEDS ORDERED: BISACODYL 10 MG SUPP RECTAL PRN (22:45)
[2016-06-29] VITALS (12 sets, daily range): BP systolic 139–176; BP diastolic 72–92; PULSE 64–88; RESP 16–18; TEMP 98–99.1; O2SAT 91–97
[2016-06-29] MEDS: SODIUM CHLOR 0.45% 1000 ML INJ 1,000 ML IV SCH ×4 (00:20→09:08)
[2016-06-29 05:32] LABS: AUTOMATED NEUTROPHIL # 4.1 TH/MM3 (1.8-7.7); BASOPHIL % 0.1 % (0.0-2.0); EOSINOPHIL # 0.1 TH/MM3 (0-0.4); EOSINOPHIL % 1.2 % (0.0-4.0); HEMATOCRIT 28.5 % (39.0-51.0); HEMO FLAGS DIFF FINAL; LYMPH % 2.8 % (9.0-44.0); LYMPHOCYTE # 0.1 TH/MM3 (1.0-4.8); MEAN CELL VOLUME 89.3 FL (80.0-100.0); MEAN CORPUSCULAR HEMOGLOBIN 31.1 PG (27.0-34.0); MEAN CORPUSCULAR HGB CONC 34.8 % (32.0-36.0); MONO % 2.8 % (0.0-8.0); NEUT % 93.1 % (16.0-70.0); PLATELET COUNT 137 TH/MM3 (150-450); RED BLOOD COUNT 3.19 MIL/MM3 (4.50-5.90); WHITE BLOOD COUNT 4.4 TH/MM3 (4.0-11.0)
[2016-06-29 05:54] LABS: MAGNESIUM 1.7 MG/DL (1.5-2.5); POTASSIUM 3.7 MEQ/L (3.5-5.1)
[2016-06-29] MEDS: LEVOTHYROXINE SODIUM 75 MCG TAB PO SCH (06:15)
[2016-06-29] MEDS: LEVOTHYROXINE SODIUM 100 MCG TAB PO SCH (06:15)
[2016-06-29] MEDS: INSULIN NovoLIN REGULAR SUPPLEMENTAL SCALE SQ SCH ×4 (06:16→21:23)
[2016-06-29] MEDS: TACROLIMUS 1 MG CAP PO SCH (06:16)
[2016-06-29] MEDS: MYCOPHENOLATE MOFETIL 500 MG TAB PO SCH ×2 (06:16→17:04)
[2016-06-29] MEDS: cloNIDine HCL 0.1 MG TAB PO PRN (07:25)
[2016-06-29] MEDS: TAMSULOSIN HCL 0.4 MG CAP PO SCH (08:48)
[2016-06-29] MEDS: NYSTATIN SUSP 500,000 U/5 ML CUP SWISH-SWAL SCH ×3 (08:48→21:23)
[2016-06-29] MEDS: NIFEdipine 60 MG SUSTAINED RELEASE TAB PO SCH (08:48)
[2016-06-29] MEDS: CALCIUM CARBONATE 500 MG CHEWABLE TAB CHEW SCH ×2 (08:48→16:00)
[2016-06-29] MEDS: DOCUSATE SODIUM 100 MG CAP PO SCH ×2 (08:48→21:23)
[2016-06-29] MEDS: PANTOPRAZOLE SOD 40 MG DELAYED RELEASE TAB PO SCH (08:48)
[2016-06-29] MEDS: oxyCODONE/ACETAMINOPHEN 5 MG/325 MG TAB PO PRN (09:14)
--- NOTE | 2016-06-29 12:12 | HHI.PR ---
Subjective Remarks Sitting up in bed, awake and alert, tolerating diet; slept well overnight, continues to pass flatus Objective Laboratory Tests Test 06/29/16 05:20 White Blood Count 4.4 Red Blood Count 3.19 Hemoglobin 9.9 Hematocrit 28.5 Mean Corpuscular Volume 89.3 Mean Corpuscular Hemoglobin 31.1 Mean Corpuscular Hemoglobin 34.8 Concent Red Cell Distribution Width 13.0 Platelet Count 137 Mean Platelet Volume 9.2 Neutrophils (%) (Auto) 93.1 Lymphocytes (%) (Auto) 2.8 Monocytes (%) (Auto) 2.8 Eosinophils (%) (Auto) 1.2 Basophils (%) (Auto) 0.1 Neutrophils # (Auto) 4.1 Lymphocytes # (Auto) 0.1 Monocytes # (Auto) 0.1 Eosinophils # (Auto) 0.1 Basophils # (Auto) 0.0 CBC Comment DIFF FINAL Differential Comment Sodium Level 140 Potassium Level 3.7 Chloride Level 109 Carbon Dioxide Level 22.0 Anion Gap 9 Blood Urea Nitrogen 51 Creatinine 3.26 Estimat Glomerular Filtration 19 Rate Random Glucose 104 Calcium Level 7.9 Phosphorus Level 2.7 Magnesium Level 1.7 Vital Signs Date Time Temp Pulse Resp B/P Pulse Ox O2 Delivery O2 Flow Rate FiO2 06/29/16 11:05 99.0 85 18 163/91 91 06/29/16 11:04 91 Room Air 06/29/16 11:04 85 06/29/16 09:52 93 21 06/29/16 07:24 94 Nasal Cannula 3.00 06/29/16 07:23 67 06/29/16 07:22 99.1 67 18 176/92 94 06/29/16 04:00 64 06/29/16 03:00 98 Nasal Cannula 3.00 06/29/16 03:00 98.6 64 18 154/84 97 06/28/16 23:00 93 Nasal Cannula 3.00 06/28/16 23:00 60 06/28/16 23:00 98.2 70 16 155/81 97 06/28/16 19:00 98 Nasal Cannula 3.00 06/28/16 19:00 84 06/28/16 19:00 98.4 68 18 163/86 98 06/28/16 15:14 98.8 61 18 150/73 97 06/28/16 15:13 62 06/28/16 15:13 97 Nasal Cannula 3.00 06/28/16 15:12 18 I/O 06/28/16 06/28/16 06/28/16 06/29/16 06/29/16 06/29/16 07:00 15:00 23:00 07:00 15:00 23:00 Intake Total 4014 ml 3835 ml 3910 ml Output Total 2760 ml 2825 ml 3690 ml Balance 1254 ml 1010 ml 220 ml Intake Oral 360 ml 1200 ml 240 ml IV Total 3654 ml 2635 ml 3670 ml Output Urine Total 2720 ml 2780 ml 3670 ml Drainage Total 40 ml 45 ml 20 ml # Bowel Movements 0 0 0 Result Diagram: 06/29/1651906/29/16519 Other Results -less edematous -off oxygen -incsn C/D/I, no erythema, drain site clean less extrem edema urine in Branch dark pink but clear Medications and IVs started on Tacrolimus, off Thymoglobulin Assessment and Plan Assessment and Plan Continues to do well with excellent urine production, Creatinine continues to improve; on PO meds, ambulating; Ok to move out of CVICU, plan to keep Branch in until urine clears of blood Mateo Medina MD Jun 29, 2016 12:11
--- NOTE | 2016-06-29 13:10 | HHI.NPPN ---
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 Additional Remarks Patient is alert, no SOB, doing well Objective Data Data 06/28/16 06/29/16 19:00 07:00 Intake Total 3835 ml 3910 ml Output Total 2825 ml 3690 ml Balance 1010 ml 220 ml Intake Oral 1200 ml 240 ml IV Total 2635 ml 3670 ml Output Urine Total 2780 ml 3670 ml Drainage Total 45 ml 20 ml # Bowel Movements 0 0 Vital Signs Date Time Temp Pulse Resp B/P Pulse Ox O2 Delivery O2 Flow Rate FiO2 06/29/16 11:05 99.0 85 18 163/91 91 06/29/16 11:04 91 Room Air 06/29/16 11:04 85 06/29/16 09:52 93 21 06/29/16 07:24 94 Nasal Cannula 3.00 06/29/16 07:23 67 06/29/16 07:22 99.1 67 18 176/92 94 06/29/16 04:00 64 06/29/16 03:00 98 Nasal Cannula 3.00 06/29/16 03:00 98.6 64 18 154/84 97 06/28/16 23:00 93 Nasal Cannula 3.00 06/28/16 23:00 60 06/28/16 23:00 98.2 70 16 155/81 97 06/28/16 19:00 98 Nasal Cannula 3.00 06/28/16 19:00 84 06/28/16 19:00 98.4 68 18 163/86 98 06/28/16 15:14 98.8 61 18 150/73 97 06/28/16 15:13 62 06/28/16 15:13 97 Nasal Cannula 3.00 06/28/16 15:12 18 -: 06/29/16 0520 06/29/16 0520 Physical Exam General Appearance: No Acute Distress, Comfortable Eyes Eye Exam: Pupils Equal Neck Neck Exam: Neck Supple Pulmonary Resp Exam: Clear Bilaterally, Breath Sounds Equal, Decreased Bases Cardiology CV Exam: Regular, Normal Sinus Rhythm Gastrointestinal/Abdomen GI Exam: Soft, Non-Tender, Bowel Sounds Present, Non-Distended Extremeties Extremities Exam: Trace Edema Neurologic Neuro Exam: Alert, Awake, Oriented Psychiatric Psych Exam: Appropriate Responses Assessment/Plan Assessment Summary: Hypertension, Transplant Kidney Status Problem List: (1) Diabetes (2) Hypertension (3) ESRD (end stage renal disease) on dialysis (4) Renal transplant, status post Plan Patient has adequate urine out put. Creatinine is declining started on Prograf adjust to 5 mg q 12 with CellCept . continue to observe for recovery start N insulin 35/30 half the dose he takes at home HTN start some of home medications Follow urine out put , BMP. Problem Qualifiers (1) Diabetes: (2) Hypertension: Qualified Code: I10 - Essential hypertension Carlene Vee MD Jun 29, 2016 13:10
[2016-06-29] MEDS ORDERED: NIFEdipine 30 MG SUSTAINED RELEASE TAB PO SCH ×2 (13:15→14:00)
[2016-06-29] MEDS ORDERED: ATENOLOL 100 MG TAB PO SCH (13:15)
[2016-06-29] MEDS: cloNIDine HCL 0.2 MG TAB PO SCH ×2 (13:29→21:23)
[2016-06-29] MEDS: ATENOLOL 100 MG TAB PO SCH (14:35)
[2016-06-29] MEDS ORDERED: INSULIN HUMAN NPH 1,000 UNITS/10 ML VIAL SQ SCH (17:00)
[2016-06-29] MEDS ORDERED: TACROLIMUS 1 MG CAP PO SCH (18:00)
[2016-06-30 05:20] VITALS: BP 155/83; PULSE 71; RESP 18; O2SAT 97
[2016-06-30] MEDS: INSULIN NovoLIN REGULAR SUPPLEMENTAL SCALE SQ SCH ×3 (05:53→16:00)
[2016-06-30] MEDS: MYCOPHENOLATE MOFETIL 500 MG TAB PO SCH (05:54)
[2016-06-30] MEDS: LEVOTHYROXINE SODIUM 100 MCG TAB PO SCH (05:54)
[2016-06-30] MEDS: LEVOTHYROXINE SODIUM 75 MCG TAB PO SCH (05:55)
[2016-06-30 06:00] LABS: AUTOMATED NEUTROPHIL # 3.5 TH/MM3 (1.8-7.7); BASOPHIL % 0.4 % (0.0-2.0); EOSINOPHIL % 1.1 % (0.0-4.0); HEMATOCRIT 27.4 % (39.0-51.0); HEMO FLAGS DIFF FINAL; LYMPH % 3.5 % (9.0-44.0); LYMPHOCYTE # 0.1 TH/MM3 (1.0-4.8); MEAN CELL VOLUME 90.1 FL (80.0-100.0); MEAN CORPUSCULAR HEMOGLOBIN 30.6 PG (27.0-34.0); MEAN CORPUSCULAR HGB CONC 33.9 % (32.0-36.0); MONO % 4.2 % (0.0-8.0); NEUT % 90.8 % (16.0-70.0); PLATELET COUNT 151 TH/MM3 (150-450); RED BLOOD COUNT 3.05 MIL/MM3 (4.50-5.90); RED CELL DISTRIBUTION WIDTH 12.9 % (11.6-17.2); WHITE BLOOD COUNT 3.8 TH/MM3 (4.0-11.0)
[2016-06-30] MEDS ORDERED: TACROLIMUS 5 MG CAP PO SCH (06:00)
[2016-06-30 06:29] LABS: BICARBONATE 21.6 MEQ/L (21.0-32.0); MAGNESIUM 1.7 MG/DL (1.5-2.5); POTASSIUM 3.8 MEQ/L (3.5-5.1)
[2016-06-30 08:00] VITALS: BP 188/100; PULSE 74; RESP 16; TEMP 98.6; O2SAT 96
[2016-06-30] MEDS ORDERED: INSULIN HUMAN NPH 1,000 UNITS/10 ML VIAL SQ SCH (08:00)
[2016-06-30] MEDS: DOCUSATE SODIUM 100 MG CAP PO SCH (08:24)
[2016-06-30] MEDS: NYSTATIN SUSP 500,000 U/5 ML CUP SWISH-SWAL SCH ×2 (08:25→13:00)
[2016-06-30] MEDS: NIFEdipine 60 MG SUSTAINED RELEASE TAB PO SCH (08:25)
[2016-06-30] MEDS: PANTOPRAZOLE SOD 40 MG DELAYED RELEASE TAB PO SCH (08:25)
[2016-06-30] MEDS: SULFAMETHOXAZOLE-TRIMETHOPRIM DS 800-160 MG TAB PO SCH (08:25)
[2016-06-30] MEDS: CALCIUM CARBONATE 500 MG CHEWABLE TAB CHEW SCH ×2 (08:25→16:00)
[2016-06-30] MEDS: TAMSULOSIN HCL 0.4 MG CAP PO SCH (08:25)
[2016-06-30] MEDS: cloNIDine HCL 0.2 MG TAB PO SCH (08:25)
--- NOTE | 2016-06-30 08:29 | HHI.PR ---
Subjective Remarks Sitting up in bed, awake and alert, slept well overnight, continues to pass flatus, no BM, no N/V, madisyn PO well Objective Laboratory Tests Test 06/30/16 05:27 White Blood Count 3.8 Red Blood Count 3.05 Hemoglobin 9.3 Hematocrit 27.4 Mean Corpuscular Volume 90.1 Mean Corpuscular Hemoglobin 30.6 Mean Corpuscular Hemoglobin 33.9 Concent Red Cell Distribution Width 12.9 Platelet Count 151 Mean Platelet Volume 9.5 Neutrophils (%) (Auto) 90.8 Lymphocytes (%) (Auto) 3.5 Monocytes (%) (Auto) 4.2 Eosinophils (%) (Auto) 1.1 Basophils (%) (Auto) 0.4 Neutrophils # (Auto) 3.5 Lymphocytes # (Auto) 0.1 Monocytes # (Auto) 0.2 Eosinophils # (Auto) 0.0 Basophils # (Auto) 0.0 CBC Comment DIFF FINAL Differential Comment Sodium Level 140 Potassium Level 3.8 Chloride Level 109 Carbon Dioxide Level 21.6 Anion Gap 9 Blood Urea Nitrogen 45 Creatinine 2.85 Estimat Glomerular Filtration 22 Rate Random Glucose 110 Calcium Level 7.9 Phosphorus Level 2.0 Magnesium Level 1.7 Vital Signs Date Time Temp Pulse Resp B/P Pulse Ox O2 Delivery O2 Flow Rate FiO2 06/30/16 05:20 97 Room Air 06/30/16 05:20 71 18 155/83 97 06/29/16 23:21 76 16 139/79 95 06/29/16 23:21 95 Room Air 06/29/16 19:30 96 Room Air 06/29/16 19:30 98.0 84 16 151/88 96 06/29/16 18:37 98.9 88 18 159/87 97 06/29/16 15:17 98.7 73 18 144/72 94 06/29/16 15:07 91 Room Air 06/29/16 15:07 73 06/29/16 11:05 99.0 85 18 163/91 91 06/29/16 11:04 91 Room Air 06/29/16 11:04 85 06/29/16 09:52 93 21 I/O 06/29/16 06/29/16 06/29/16 06/30/16 06/30/16 06/30/16 07:00 15:00 23:00 07:00 15:00 23:00 Intake Total 3910 ml 2507 ml 2415 ml Output Total 3690 ml 1900 ml 2015 ml Balance 220 ml 607 ml 400 ml Intake Oral 240 ml 900 ml 400 ml IV Total 3670 ml 1607 ml 2015 ml Output Urine Total 3670 ml 1860 ml 2015 ml Drainage Total 20 ml 40 ml # Bowel Movements 0 0 0 Result Diagram: 06/30/1652606/30/16526 Other Results Abd soft, NT, ND Incsn C/D/I, no erythema, NT Ext: mild edema Assessment and Plan Assessment and Plan Continues to do well with excellent urine production, Creatinine continues to improve; on PO meds, ambulating; Ok to d/c if ok with Nephrology, plan to keep Branch in until urine clears of blood. Plan of care also discussed with . Mateo Medina MD Jun 30, 2016 08:29
[2016-06-30] MEDS ORDERED: POTASSIUM PHOSPHATE/SODIUM PHOSPHATE 250 MG TAB PO SCH (09:00)
[2016-06-30 09:32] VITALS: O2SAT 97
[2016-06-30] MEDS ORDERED: POTASSIUM PHOSPHATE INJ 30 MMOL in SODIUM CHLOR 0.9% 250 ML INJ 250 ML IV ONE (10:00)
[2016-06-30] MEDS: ATENOLOL 100 MG TAB PO SCH (11:02)
[2016-06-30 11:10] VITALS: BP 141/75; PULSE 73; RESP 16; TEMP 98.1; O2SAT 97
--- NOTE | 2016-06-30 13:52 | HHI.NPPN ---
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 Additional Remarks Patient is alert, no SOB, doing well Objective Data Data 06/29/16 06/30/16 19:00 07:00 Intake Total 2507 ml 2415 ml Output Total 1900 ml 2014 ml Balance 607 ml 400 ml Intake Oral 900 ml 400 ml IV Total 1607 ml 2015 ml Output Urine Total 1860 ml 2014 ml Drainage Total 40 ml # Bowel Movements 0 0 Vital Signs Date Time Temp Pulse Resp B/P Pulse Ox O2 Delivery O2 Flow Rate FiO2 06/30/16 11:10 98.1 73 16 141/75 97 06/30/16 11:10 97 Room Air 06/30/16 09:32 97 21 06/30/16 08:00 98.6 74 16 188/100 96 06/30/16 08:00 96 Room Air 06/30/16 05:20 97 Room Air 06/30/16 05:20 71 18 155/83 97 06/29/16 23:21 76 16 139/79 95 06/29/16 23:21 95 Room Air 06/29/16 19:30 96 Room Air 06/29/16 19:30 98.0 84 16 151/88 96 06/29/16 18:37 98.9 88 18 159/87 97 06/29/16 15:17 98.7 73 18 144/72 94 06/29/16 15:07 91 Room Air 06/29/16 15:07 73 -: 06/30/16 0527 06/30/16 0527 Physical Exam General Appearance: No Acute Distress, Comfortable Eyes Eye Exam: Pupils Equal Neck Neck Exam: Neck Supple Pulmonary Resp Exam: Clear Bilaterally, Breath Sounds Equal, Decreased Bases Cardiology CV Exam: Regular, Normal Sinus Rhythm Gastrointestinal/Abdomen GI Exam: Soft, Non-Tender, Bowel Sounds Present, Non-Distended Extremeties Extremities Exam: Trace Edema Neurologic Neuro Exam: Alert, Awake, Oriented Psychiatric Psych Exam: Appropriate Responses Assessment/Plan Assessment Summary: Hypertension, Transplant Kidney Status Problem List: (1) Diabetes (2) Hypertension (3) ESRD (end stage renal disease) on dialysis (4) Renal transplant, status post Plan Patient has adequate urine out put. Creatinine is declining started on Prograf adjust to 6 mg q 12 with CellCept . continue to observe for recovery started N insulin 35/30 half the dose he takes at home HTN start some of home medications ok to discharge follow as out patient Problem Qualifiers (1) Diabetes: (2) Hypertension: Qualified Code: I10 - Essential hypertension Carlene Vee MD Jun 30, 2016 13:52
[2016-06-30] MEDS ORDERED: NIFE60TA8 PO (14:07)
[2016-06-30] MEDS ORDERED: MYCO500 PO (14:07)
[2016-06-30] MEDS ORDERED: KPHOS250 PO (14:07)
[2016-06-30] MEDS ORDERED: OXYC1TAB63 PO (14:07)
[2016-06-30] MEDS ORDERED: NYST1000 SWISH-SWAL (14:07)
[2016-06-30] MEDS ORDERED: VALG450 PO (14:07)
[2016-06-30] MEDS ORDERED: PANT40TA3 PO (14:07)
[2016-06-30] MEDS ORDERED: BACT800T5 PO (14:07)
[2016-06-30] MEDS ORDERED: TACR5 PO (14:07)
[2016-06-30] MEDS ORDERED: CALC500C16 CHEW (14:07)
[2016-06-30] MEDS: oxyCODONE/ACETAMINOPHEN 5 MG/325 MG TAB PO PRN (14:45)
--- NOTE | 2016-06-30 15:09 | PHATRASOAP ---
Date/Time: 06/30/16 7227 Pharmacist daily assessment of kidney transplant patient: S: Post op renal transplant day #5 O: Ht: 5 ft 7 in Wt: 85 kg Allergies: NKA SCR = 2.85 A: Vitals: BP = 150s/80s Electrolytes: Na= 140, K=3.8, Ca= 7.9, Phosphorus=2, Mg=1.7 Albumin = 3.7 WBC=3.8 H/H=9.3/27.4 AD=441 LXS=1655 mL BM = None Tacrolimus level 06/29=1.9 Hospital Medications: Thymoglobulin 3.9 mg/kg as 3 divided doses since admission) Cellcept 1000 mg po bid Prograf 5 mg po BID Valganciclovir 900 mg po daily Insulin low scale Accuchecks q6h Insulin NPH 35 units daily@08 Insulin NPH 30 units daily@17 Calcium 500 mg po bid Percocet 5mg po q4h prn Home Medications: ASA 81mg daily Levothyroxine 175mcg daily Nifedipine 30mg daily -Patient had received 3 doses of Thymoglobulin with total dose to date 3.9 mg/kg reflected with appropriate drop in WBC. -Patient phosphorus level is low, might benefit from IV Potassium Phosphate, also might consider adding Kphos neutral to mainatain steady phosphorus level. -BG better controlled after addition of insulin NPH. - H/H drop might be dilutional since patient had continued IV fluid and is having oral liquids as well. -No bowel movement yet, might need to add dulcolax suppository. - Pain is well controlled with Percocet. P: -Might consider adding Potassium phosphate 30mmol and Kphos neutral 500mg PO bid -Monitor and reassess H/H. -Might consider adding dulcolax. Pharmacist: Baljinder Ceballos PharmD Signature on file Consulting Physician:
--- NOTE | 2016-06-30 15:13 | PHATRANEDU ---
Date/Time: 06/30/16 4260 Pharmacist Patient Education: * Education on medication compliance: Counseled patient on the crucial importance of compliance with all his medication especially his anti-rejection medication. Educated patient on the different frequency of his different medication and how to take his medication in regards to meals to minimize side effects and maximize benefits. * Education on medication side effects: Counseled on various side effects of his anti rejection and anti infective medications: Educated patient on the tendency of anti rejection medications to increase his blood pressure and blood sugars, educated patient to continue to monitor blood pressure and notify physician if he noticed increase in blood pressure above his normal value. Educated patients on side effects associated with Tacrolimus and Mycophenolate Mofetil. Moreover educated patient of side effects of Bactrim, Valganciclovir and Nystatin. Educated patient on the action plan needed when any side effects occurs. * Education on signs and symptoms of rejection: Educated patient on different signs and symptoms of rejection that include: -Decreased urine output. -A temperature above 100* F (37.8* C). -Tenderness in the area of your new kidney. -Bloody or foul smelling urine. -Flu-like feelings. -Weight gain (more than 5 pounds in two days). Educated patient on signs and symptoms of infection that include: -A fever above 100* F (37.8* C). -Drainage or bad odor of drainage from your surgical scar. -Burning when you pass your urine. -A cold or cough that will not go away. -Flu-like feelings. * Action plan needed in situation of rejection, infection or medications side effects: Educated patient on need to contact his physician if he noticed any of the above symptoms. Educated patient to follow with his physician on time for labs and follow ups. Pharmacist: Baljinder Ceballos PharmD Signature on file
[2016-06-30 16:05] VITALS: BP 161/84; PULSE 74; RESP 16; TEMP 97.9; O2SAT 97
[2016-06-30] MEDS ORDERED: TACROLIMUS 1 MG CAP PO SCH (18:00)
--- NOTE | 2016-07-01 09:14 | HHI.DS ---
Discharge Summary Admission Date Jun 25, 2016 at 12:10 Discharge Date: Jun 30, 2016 Admitting Diagnosis ESRD (1) ESRD (end stage renal disease) on dialysis Brief History 71 yo male with ESRD from chronic diabetes; on peritoneal dialysis, still voids about 1 qt UO/day; No recent F/C/N/V/D, no exposure to anyone ill, no travel outside [place]; no open wounds or cough. CBC/BMP: 06/30/1652606/30/16526 Significant Findings Laboratory Tests Test 06/29/16 06/30/16 05:20 05:27 Red Blood Count 3.19 MIL/MM3 3.05 MIL/MM3 (4.50-5.90) (4.50-5.90) Hemoglobin 9.9 GM/DL 9.3 GM/DL (13.0-17.0) (13.0-17.0) Hematocrit 28.5 % 27.4 % (39.0-51.0) (39.0-51.0) Platelet Count 137 TH/MM3 (150-450) Neutrophils (%) (Auto) 93.1 % 90.8 % (16.0-70.0) (16.0-70.0) Lymphocytes (%) (Auto) 2.8 % 3.5 % (9.0-44.0) (9.0-44.0) Lymphocytes # (Auto) 0.1 TH/MM3 0.1 TH/MM3 (1.0-4.8) (1.0-4.8) Chloride Level 109 MEQ/L 109 MEQ/L (98-107) (98-107) Blood Urea Nitrogen 51 MG/DL (7-18) 45 MG/DL (7-18) Creatinine 3.26 MG/DL 2.85 MG/DL (0.60-1.30) (0.60-1.30) Estimat Glomerular Filtration 19 ML/MIN (>89) 22 ML/MIN (>89) Rate Calcium Level 7.9 MG/DL 7.9 MG/DL (8.5-10.1) (8.5-10.1) Tacrolimus (Prograf) Level 1.9 NG/ML 3.7 NG/ML (5.0-20.0) (5.0-20.0) White Blood Count 3.8 TH/MM3 (4.0-11.0) Random Glucose 110 MG/DL (74-106) Phosphorus Level 2.0 MG/DL (2.5-4.9) PE at Discharge Abd soft, NT, ND Incsn C/D/I Drain site dry, non-infected Ext: mild edema Hospital Course Received a donor KTx on 06/25/16, with uneventful post-op recovery; good early graft function with accompanying clearance; progressed to PO intake, ambulation, and GI activity. Branch patent, urine remained slightly pink so Branch maintained until clearance of redness, RTC in 2-3 days Pt Condition on Discharge: Good Discharge Disposition: Discharge Home Discharge Instructions DIET: Follow Instructions for: As Tolerated, No Restrictions, Diabetic Diet Activities you can perform: Regular-No Restrictions, Shower Only-No Bath Activities to avoid: Contact Sports, Strenuous Activity, Driving Follow up Referrals: Appointment for Follow Up Mateo Medina MD Jul 01, 2016 09:14
--- NOTE | 2016-07-01 09:53 | MP ---
cc: PING MEDINA MD DATE OF SURGERY 06/25/[address] David Medina PRIMARY DIAGNOSIS End-stage renal disease POSTOPERATIVE DIAGNOSIS End-stage renal disease PROCEDURE PERFORMED donor allograft back table preparation. PROCEDURE The allograft was removed from its preservative solution for examination and transferred to the dissecting basin. Care was used to ensure the allograft was fully submerged in the cold preservative solution. 4-0 Silk Stay sutures were placed on the corners of the vein as well as the aortic patch. The ureter was exposed by retracting perpendicular to the Stay Sutures. Excess fat was trimmed in the regions of the cortex of the kidney. Exposed vessels near the exposed lymphatics from the hilum were ligated with 3-0 Silk. The tissue pedicle to the inferior portion of the ureter was preserved and trimmed to size using sharp dissection and ligature. The hilar dissection proceeded with separation of the artery and the vein followed by dissecting off excess adventitial and lymphatic tissue surrounding the cava and the renal vein. This was done for exposure without undue skeletonization of the renal vein. Similar process was used to identify, dissect and expose the renal artery. Once fully both vascular structures were tested for leaks. Once the vessels were tested with no leaks confirmed, the graft was then returned to the preservative solution until the need for surgical anastomosis on the operating field. Because this was a right kidney, an additional renal vein venoplasty was performed using two fires from a 45 mm vascular stapler in order to fashion the conduit for the renal vein anastomosis. MD GORDON Dixon/ALIE /9:40 AM /9:41 AM
--- NOTE | 2016-07-01 09:59 | MP ---
cc: PING MEDINA MD DATE OF SURGERY: 06/25/[address] David Medina PREOPERATIVE DIAGNOSIS End-stage renal disease. POSTOPERATIVE DIAGNOSIS End-stage renal disease. PROCEDURE PERFORMED donor kidney transplant. INDICATIONS FOR PROCEDURE The patient is a 71-year-old male with end-stage renal disease from longstanding diabetes. He is here to receive a kidney from a donor. INTRAOPERATIVE FINDINGS 1. Normal anatomic relationship between external iliac artery and external iliac vein. 2. Mild to moderate external iliac artery calcification. 3. Intact spermatic cord with contents. PROCEDURE The patient received prophylactic and intravenous antibiotics followed by inhalational and intravenous anesthetics prior to endotracheal intubation. He had previously received Solu-Medrol and Thymoglobulin for induction. He was then positioned, prepped and draped in sterile fashion. Local anesthetic with Marcaine and lidocaine was infiltrated into the incision site. A right lower quadrant curvilinear incision was then performed with division of the external and internal oblique muscles and preservation of the rectus. En route the inferior epigastrics were divided but the spermatic cord was preserved and retracted medially. Once the peritoneum was visualized, it was mobilized medially so as to expose the retroperitoneum. A Bookwalter retractor was placed to afford optimum exposure. The lymphatics and the tissue overlying the iliac vessels were carefully dissected and ligated using silk ties and surgical clips. A Satinsky clamp was placed on the external iliac vein and a longitudinal venotomy was performed. A renal vein to external iliac vein anastomosis was performed using continuous 5-0 Prolene suture. Similarly, two adult pedicle vascular clamps were used to vascularly isolate the external iliac artery. The arteriotomy was then performed using dual punches from the 4.0 aortic punch. The arterial anastomosis was performed using a continuous 6-0 Prolene suture. Prior to completion of each anastomosis the vessels were irrigated with heparinized saline. At completion of the arterial anastomosis, the vascular clamps were released with good perfusion in the allograft. The bladder was then filled with antibiotic solution and the mucosa was exposed for implantation. The ureter was trimmed to size, spatulated, and then with the mucosa opened a ureteroneocystostomy was performed using continuous 6-0 PDS suture. The anastomosis was then placed under vascularized tissue using a runner suture to approximate the muscularis over the bladder anastomosis. Hemostasis in the dissection area was achieved. Urine was produced by the allograft prior to implantation of the ureter. A 19-[place] Chong drain was placed in the wound cavity and the incision was then closed using a two-layer closure with #1 PDS in the superficial layer and #1 Prolene in the deep layer. The skin was approximated using alpa. The patient tolerated the procedure well. There were no complications during the case. The patient was extubated in the operating room and transferred to PACU in hemodynamically stable condition. MD GORDON Dixon/SINDY /9:41 AM /9:48 AM
[2016-09-19] MEDS ORDERED: TACR5 PO (14:22)
[2016-09-19] MEDS ORDERED: VALT500T PO (14:23)
[2016-09-19] MEDS ORDERED: NIFE30TA61 PO (14:24)
[2016-09-19] MEDS ORDERED: ASPI81TA11 PO (14:26)
[2016-09-19] MEDS ORDERED: MAGN400T2 PO (14:28)
[2016-09-19] MEDS ORDERED: OMEG100010 PO (14:32)
[2016-09-19] MEDS ORDERED: MULT1TAB46 PO (14:32)
[2016-09-19] MEDS ORDERED: FOLI800T PO (14:32)
[2016-09-19] MEDS ORDERED: CHOL5000 PO (14:32)
[2016-09-19] MEDS ORDERED: IRON18TA PO (14:32)
[2016-09-19] MEDS ORDERED: COLA100C PO (14:33)
[2016-09-19] MEDS ORDERED: NOVOLOGP2 SQ (14:35)
== END 2016-06-30 17:19 | disposition home or self-care (01) | DRG 652 ==
LOC: HCIS 10:38 → OBSVTOIN 12:10 → HCIS 16:01 → HCVR 06-26 00:32 → HCIN 06-29 18:15
PROVIDERS: ADMIT Internal Medicine Nephrology; ATTEND Internal Medicine Nephrology
PROC: 0TY00Z0 Transplantation of Right Kidney, Allogeneic, Open Approach (ICD-10-PCS; principal; 2016-06-25 16:05)
DX: I12.0 Hypertensive chronic kidney disease with stage 5 chronic kidney disease or end stage renal disease (principal); E11.21 Type 2 diabetes mellitus with diabetic nephropathy; N18.6 End stage renal disease; E11.22 Type 2 diabetes mellitus with diabetic chronic kidney disease; E03.9 Hypothyroidism, unspecified; E78.5 Hyperlipidemia, unspecified; N40.0 Benign prostatic hyperplasia without lower urinary tract symptoms; D64.9 Anemia, unspecified; Z79.4 Long term (current) use of insulin; Z99.2 Dependence on renal dialysis
CPT/HCPCS: 36430; 71010; 71020; 80048; 80053; 80197; 82948; 83735; 84100; 85025; 85610; 85730; 86850; 86900; 86901; 86920; 93005; 94150; C9113; J0131; J0690; J1200; J1644; J1815; J2250; J2270; J2370; J2405; J2440; J2710; J2930; J3010; J7030; J7040; J7050; J7507; J7511; J7517; P9016; Q0163

== ENCOUNTER → 2016-07-07 | Outpatient (CLI) | payer OTHER ==
[~2016-07-07] MED LIST: ASPI1TAB69 PO; ASPI81TA11 PO; ATEN100T PO; BACT800T5 PO; CALC500C16 CHEW; CHOL5000 PO; CLON0.2T PO; COLA100C PO; EPA1000C PO; FOLI800T PO; INSUINJ4; INSUINJ4 SQ; IRON18TA PO; KPHOS250 PO; LEVO-154 PO; LOVA40TA PO; MAGN400T2 PO; MULT1TAB46 PO; MYCO500 PO; NIFE30TA61 PO; NIFE60TA8 PO; NOVOLOGP2 SQ; NYST1000 SWISH-SWAL; OMEG100010 PO; OXYC1TAB63 PO; PANT40TA3 PO; TACR5 PO; TAMS0.4C4 PO; VALG450 PO; VALT500T PO
--- NOTE | 2016-07-07 12:53 | RADRPT ---
EXAM DATE/TIME: 07/07/2016 11:49 [facility] COMPARISON: No previous studies available for comparison. INDICATIONS : Transplant kidney. MEDICAL HISTORY : Hypercholesterolemia. Hyperthyroidism. Hypertension. Renal failure. Diabetes. SURGICAL HISTORY : Renal transplant. ENCOUNTER: Initial ACUITY: 1 day PAIN SCORE: 2/10 LOCATION: Right lower quadrant MEASUREMENTS: TRANSPLANT KIDNEY: 11.2 x 6.9 x 6.0 cm LOCATION: Right lower quadrant. ARCUATE ARTERIES RESISTIVE INDEX: Upper - 0.7 Mid - 0.7 Lower - 0.7 RA/EIA Ratio: 0.7 MAIN RENAL ARTERY VELOCITY: (cm/sec): 143 cm/s MAIN RENAL VEIN: Patent EXTERNAL ILIAC ARTERY VELOCITY (cm/sec): 201 cm/s * NORMAL DOPPLER FINDINGS Arcuate arteries - RI = 0.6 - 0.8 Renal artery = under 200 cm/sec Renal vein = May be monophasic with continuous flow or demonstrate some pulsatility with cardiac cycl e FINDINGS: TRANSPLANT KIDNEY: Normal cortical thickness and echotexture. No hydronephrosis, stone, or mass. No peritransplant flu id collection. URINARY BLADDER: Within normal limits given the degree of distension. CONCLUSION: Satisfactory appearance of right lower quadrant transplant kidney. Venkat Calix MD on July 07, 2016 at 12:50 Board Certified Radiologist. This report was verified electronically.
== END ==
LOC: HRAD 11:31
DX: Z94.0 Kidney transplant status (principal)
CPT/HCPCS: 76776

== ENCOUNTER → 2016-09-23 | Day surgery (SDC) | payer MEDICARE, OTHER ==
[~2016-09-23] VITALS: Ht 170.2 cm; Wt 87.4 kg
[~2016-09-23] MED LIST changes: -ASPI1TAB69 PO; +BUPIVACAINE HCL PF 0.5% 30 ML VIAL ONE; +CHLORHEXIDINE GLUCONATE 2 % 1 PACK (2 CLOTHS) TOPICAL PRN; -EPA1000C PO; +INSULIN HUMAN REGULAR 1,000 UNITS/10 ML VIAL SQ PRN; +LACTATED RINGER'S 1000 ML IV PRN; +LIDOCAINE HCL 2% 50 ML VIAL ONE; -LOVA40TA PO; +METOPROLOL TARTRATE 25 MG TAB PO PRN; +MINERAL OIL 10 ML VIAL ONE; -NIFE60TA8 PO; -NYST1000 SWISH-SWAL; -OXYC1TAB63 PO; +POVIDONE IODINE 5% (ANTISEPSIS KIT) 4 APPLICATIONS EACH NARE PRN; +SODIUM BICARBONATE 8.4% INJ 50 MEQ/50 ML SYR ONE; +SODIUM CHLORID 0.9% 500 ML IV PRN; -VALG450 PO; +ceFAZolin 1,000 MG/NS 100 ML IV SCH
[2016-09-23 08:47] VITALS: BP 188/88; PULSE 57; RESP 18; TEMP 98.9; O2SAT 98
[2016-09-23 09:06] LABS: APTT (PATIENT) 29.2 SEC (24.3-30.1); INTERNATIONAL NORMALIZED RATIO 1.1 RATIO; PROTHROMBIN TIME - PATIENT 11.7 SEC (9.8-11.6)
--- NOTE | 2016-09-23 09:56 | HHI.PR ---
Subjective Remarks Mr. Pavon is here today for his PD catheter removal. H e states he fell 2 weeks ago, had a scalp lac that was sutured in the ER at , and had subsequently had the sutures removed at a hospital [place] of state; Since then he reports no fevers , but has noticed a growing lump at the incision site. Not much pain reported, no headaches or myalgias. Objective Vital Signs Date Time Temp Pulse Resp B/P Pulse Ox O2 Delivery O2 Flow Rate FiO2 09/23/16 08:47 98.9 57 18 188/88 98 Imaging Photo documented into EDIT at Transplant Clinic Other Results Laboratory Tests Test 09/23/16 08:35 Prothrombin Time 11.7 Prothromb Time International 1.1 Ratio Activated Partial 29.2 Thromboplast Time Blood Type A POSITIVE Antibody Screen NEGATIVE elevated neutrophil count Objective Remarks Exam: 1cm diam, 0.5 cm height soft, sl. fluctuant, discolored, but not erythematous, mass located in-line with incision over scalp; no discharge, appears full but not tense. No surrounding warmth or erythema; no other surrounding lesions in scalp. Assessment and Plan Assessment and Plan Cancelled procedure for today, reschedule once scalp lesion resolved. Discussed findings and rationale for aborting procedure, with and Mrs. Pavon. I explained the potential for distant infection at the PD cath site. They understand and agree, I have asked Mrs. Pavon to inform us of his treatment management and we will see him in clinic on . Mateo Medina MD Sep 23, 2016 09:56
== END | disposition home or self-care (01) ==
LOC: EDSTATUS 09-22 10:00 → HSDC 07:55
PROVIDERS: ATTEND Surgery
DX: Z49.02 Encounter for fitting and adjustment of peritoneal dialysis catheter (principal); Z53.8 Procedure and treatment not carried out for other reasons; S01.01XD Laceration without foreign body of scalp, subsequent encounter; W19.XXXD Unspecified fall, subsequent encounter
CPT/HCPCS: 82948; 85610; 85730; 86850; 86900; 86901; G0463; J0690; J7120; 99211

== ENCOUNTER → 2016-12-25 | Outpatient (CLI) | payer OTHER ==
[~2016-12-25] MED LIST changes: -BUPIVACAINE HCL PF 0.5% 30 ML VIAL ONE; -CHLORHEXIDINE GLUCONATE 2 % 1 PACK (2 CLOTHS) TOPICAL PRN; -INSULIN HUMAN REGULAR 1,000 UNITS/10 ML VIAL SQ PRN; -LACTATED RINGER'S 1000 ML IV PRN; -LIDOCAINE HCL 2% 50 ML VIAL ONE; -METOPROLOL TARTRATE 25 MG TAB PO PRN; -MINERAL OIL 10 ML VIAL ONE; -POVIDONE IODINE 5% (ANTISEPSIS KIT) 4 APPLICATIONS EACH NARE PRN; -SODIUM BICARBONATE 8.4% INJ 50 MEQ/50 ML SYR ONE; -SODIUM CHLORID 0.9% 500 ML IV PRN; -ceFAZolin 1,000 MG/NS 100 ML IV SCH
--- NOTE | 2016-12-25 13:54 | RADRPT ---
EXAM DATE/TIME: 12/25/2016 12:34 [place] COMPARISON: US KIDNEY / TRANSPLANT, July 07, 2016, 11:49. INDICATIONS : Evaluate for obstruction and/or rejection. MEDICAL HISTORY : Hypercholesterolemia. Hyperthyroidism. Hypertension. Stage IV renal failure. Diabetes. Head trauma. D iabecheryl. SURGICAL HISTORY : Renal transplant. Left eye laser surgery. Peritoneal dialysis catheter. ENCOUNTER: Subsequent ACUITY: 4-6 months PAIN SCORE: 0/10 LOCATION: Right lower quadrant MEASUREMENTS: TRANSPLANT KIDNEY: 10.6 x 6.0 x 6.7 cm LOCATION: Right lower quadrant. PREVIOUS ULTRASOUND: Jul 07 2016 PREVIOUS ARCUATE ARTERIES INDEX: Upper - 0.7 Mid - 0.7 Lower - 0.7 ARCUATE ARTERIES RESISTIVE INDEX: Upper - 0.7 Mid - 0.7 Lower - 0.7 RA/EIA Ratio: 0.5 MAIN RENAL ARTERY VELOCITY: (cm/sec): 143.7 MAIN RENAL VEIN: Patent EXTERNAL ILIAC ARTERY VELOCITY (cm/sec): 315.3 * NORMAL DOPPLER FINDINGS Arcuate arteries - RI = 0.6 - 0.8 Renal artery = under 200 cm/sec Renal vein = May be monophasic with continuous flow or demonstrate some pulsatility with cardiac cycl e FINDINGS: TRANSPLANT KIDNEY: Normal cortical thickness and echotexture. Mild, physiologic prominence of the renal pelvis without hydronephrosis, stone, or mass. No peritransplant fluid collection. URINARY BLADDER: Within normal limits given the degree of distension. CONCLUSION: Negative exam. Blood flow is preserved throughout. No hydronephrosis. Guillermo Armstrong MD on December 25, 2016 at 13:48 Board Certified Radiologist. This report was verified electronically.
== END ==
LOC: HRAD 12:17
PROVIDERS: ATTEND Internal Medicine Nephrology
DX: Z94.0 Kidney transplant status (principal)
CPT/HCPCS: 76776